=== PATIENT | male | born 1955 | race Caucasian/White ===

== ENCOUNTER 2023-04-09 03:13 | Inpatient (IN) | payer MEDICARE, OTHER, SELFPAY ==
[2023-04-08 22:14] VITALS: BMI 28.2
[2023-04-08 22:15] VITALS: BP 201/171
[2023-04-08 22:20] VITALS: BP 199/96
[2023-04-08 22:39] LABS: % Basophils 0.6 % (0-2); % Immature Granulocytes 0.4 % (0-0.5); % Lymphocytes 31.2 % (20.5-51.1); % Monocytes 10.1 % (1.7-9.3); % Neutrophils 49.7 % (42.2-75.2); Absolute Eosinophils 0.6 10^3/uL (0-0.7); Absolute Lymphocytes 2.2 10^3/uL (1.2-3.4); Absolute Monocytes 0.7 10^3/uL (0.1-0.6); Absolute Neutrophils 3.5 10^3/uL (1.4-6.5); Hematocrit 40.5 % (39.0-52.0); Hemoglobin 13.4 g/dL (13.0-18.0); Mean Corp Hgb Conc. 33.1 g/dL (33.0-37.0); Mean Corpuscular Hgb 29.3 pg (27.0-31.0); Mean Corpuscular Volume 88.4 fL (80.0-94.0); Mean Platelet Volume 9.2 fL (7.4-10.4); Nucleated Red Blood Cells % 0 % (-); Platelet Count 268 10^3/uL (130-400); Red Blood Cell Count 4.58 10^6/uL (4.70-6.10); Red Cell Dist. Width 12.9 % (11.5-14.5)
[2023-04-08 22:58] LABS: ALT (SGPT) 241 U/L (0-50); AST (SGOT) 41 U/L (17-59); Albumin 4.5 g/dl (3.5-5.0); Alkaline Phosphatase 140 U/L (38-126); Blood Urea Nitrogen 26 mg/dl (9-20); Calcium 9.2 mg/dl (8.4-10.2); Carbon Dioxide 30 mmol/L (22-30); Chloride 101 mmol/L (98-107); Estimated Creatinine Clearance 81 ml/min; Glucose 173 mg/dl (70-99); Lipase 98 U/L (23-300); Potassium 4.1 mmol/L (3.5-5.1); Sodium 138 mmol/L (135-145); Total Bilirubin 0.5 mg/dl (0.2-1.3); eGFR > 60.00
[2023-04-08 23:36] VITALS: BP 187/84
--- NOTE | 2023-04-08 23:46 | ED.GENMED ---
History of Present Illness
General
Chief Complaint: Abdominal Pain
Source: patient
Exam Limitations: none
Time Seen by Provider: 04/08/23 23:15
Travel History
Have you had any contact with someone who has COVID-19?: No
Do you have any symptoms of coronavirus? Fever > 100 degrees, chills, cough, shortness of breath, sore throat, loss of taste or smell, muscle aches, or headache?: No
History of Present Illness
History of Present Illness:
This is a 67 year old male that comes in with c/o right upper abd pain. Sates that this started about 8-9pm tonight. States that the pain wraps around to his back. States that he has been vomiting. States that he has pain in the abd with the
vomiting. Denies any fever, chils, chest pain, SOB, diarrhea, headache, dizziness, urinary burning.
Past History
Past History
ED Past Medical History: Hypercholesterolemia, NIDDM and Other (Back pain, Diverticulitis, Sleep apnea, Arthritis, Fx C3, )
ED Past Surgical History: Appendectomy, Bowel resection (Sigmoidectomy), Tonsilectomy, Urological (Vasectomy) and Other (Hernia repair, Bone graft, Uvulopalatopharyngoplasty)
Social History
Tobacco: Non-smoker
Alcohol: Occasional
Personal:
Living: with family
Phy Exam
General Physical Exam
General Presentation: mild distress
General age: appears stated age
General Skin: warm and dry
General Habitus: normal
General Mental: alert
General Hydration: dry mucous membranes
ENT Exam
ENT Exam: TM's normal, pharynx normal and neck supple
Eye Exam
Eye Exam: EOMI
Cardiovascular Exam
Cardiovascular Exam: regular rate/rhythm, no edema, no murmur and normal peripheral pulses
Pulmonary Exam
Pulmonary Exam: lungs clear, no respiratory distress, no rales, chest non tender, no crackles, no rhonchi, no wheezing and no cough
Gastrointestinal Exam
Gastrointestinal Exam: soft, no pulsatile mass, non distended, tender (Right upper abd tenderness with palpation. Hard palpable area) and other (Hypoactive bowel sounds)
Musculoskeletal Exam
Musculoskeletal Exam: full ROM and no edema
Skin Exam
Skin Exam: normal color, warm/dry, no rash and no petechia
Psychiatric Exam
Psychiatric Exam: normal mood/affect
Course
Orders/Labs/Results
Orders:
Orders
04/08/23 22:19
ECG [Electrocardiogram (*1)] Urgent
Reason for Study: Hypertension, Benign
IV Insert/Care/Rem.- Treatment PRN
04/08/23 22:20
EKG- Treatment ONCE
04/08/23 22:33
Complete Blood Count/With Diff Urgent
Comprehensive Metabolic Panel Urgent
Lipase Urgent
04/08/23 23:45
0.9% Sodium Chloride 1000 ml [Nss] 1,000 ml IV BOLUS
HYDROmorphone [Dilaudid] 1 mg IV NOW STA
Ondansetron Injectable [Zofran] 4 mg IV NOW STA
04/09/23 00:00
US Abdomen Complete/Upper Urgent
Reason For Exam: Right upper abd pain
Abnormal Lab Results
04/08/23
22:33
RBC 4.58 L 10^6/uL
(4.70-6.10)
Absolute Monos (auto) 0.7 H 10^3/uL
(0.1-0.6)
Monocytes % 10.1 H %
(1.7-9.3)
Eosinophils % 8.0 H %
(0-6)
BUN 26 H mg/dl
(9-20)
Glucose 173 H mg/dl
(70-99)
ALT 241 H U/L
(0-50)
Alkaline Phosphatase 140 H U/L
(38-126)
04/08/23 22:33
04/08/23 22:33
Dehydration. Glucose nonfasting. ALT Severely elevated. Alk phos mildly elevated. Lipase normal at 98
Vital Signs
Initial and Last Documented VS:
Initial Vital Signs
Temp Pulse Resp BP Pulse Ox
98.7 F 64 19 201/171 99
04/08/23 22:15 04/08/23 22:15 04/08/23 22:15 04/08/23 22:15 04/08/23 22:15
Last Documented Vital Signs
Temp Pulse Resp BP Pulse Ox
98.7 F 60 13 159/94 96
04/08/23 22:15 04/09/23 00:15 04/09/23 00:00 04/09/23 00:00 04/09/23 00:15
MDM/Problems Addressed
Differential Diagnosis Includes:
Gallbladder disease. Liver disease,
MDM/Problems Addressed:
This is a 67 year old male that comes in with c/o upper abd pain and vomiting that started tonight.
Will get labs, US and if nothing seen on US will get CT scan.
Back into see patient. Explained that he would be admitted. Explained that he has a stone stuck in the neck of the gallbladder with gallbladder distention.
Chronic conditions affecting care:
NA
Acute Exacerbation and/or Progression of Chronic Illness:
NA
*Radiology
Radiology exam reviewed: radiology read reviewed (US night hawk- 1.3cm gallstone and sludge lodged in the neck of markedly distended gallbladder, measuring over 12cm in length. Mild gallbladder wall thickenig of 4mm. Negative Ibrahim's sign although
patient did receive pain relieving medications. Extrahepatic biliary ductal dilation with common ) and other (US cont- common bile duct measuring 1.0cm. There is also mild main pancreatic ductal dilation of 4.5mm. No discreate ductal stone
identified although not excluded. Findings concerning for acute Cholecystitis and obstructive choledocholithiasis. Hyperechoic fatty liver. R kidney without hydronephros )
*Pulse Oximetry
Patient hypoxic: no
*EKG
Interpreted by ED Provider?: Yes
Heart Rate: 60
Rate: normal
Rhythm: sinus
[place]: left axis deviation
Interval: first degree heart block
QRS Pattern: normal QRS
Ischemia: no ischemia
*Critical Care Note
Total Time (30-74mins, 75-104mins- exclusive of procedures): Not Applicable
ED Attending Note
-
Portions of this chart may have been created with voice recognition software.� Occasional wrong word or��sound alike� substitutions may have occurred due to the inherent limitations of voice recognition software.
Discharge Plan
Departure
Patient Disposition: Admit
Date of Disposition: 04/09/23
Time of Disposition: 01:31
Admit to: Med/Surg
Presentation/result/management discussed w/ accepting MD/DO: Hospitalist
Patient with high blood pressure during this ER visit?: Yes
Condition: Good
Covid-19: Not Applicable
Discharge Problem:
Choledocholithiasis with acute cholecystitis with obstruction
Prescriptions:
No Action
cyclobenzaprine 10 MG tablet
10 mg PO PRN PRN (Reason: Back pain)
pravastatin 20 MG tablet
20 mg PO Daily
tizanidine 2 MG capsule
2 mg PO PRN PRN (Reason: back pain)
Referrals:
Kavitha Kathleen DO [Family Provider] -
Interventions
Interventions:
*Risk Screen - Suicide Last Done: 04/08/23 22:15
*General Assessment Last Done: 04/08/23 22:15
*Neglect/Abuse Screening Last Done: 04/08/23 22:15
ED- Fall Risk Assessment Last Done: 04/08/23 23:57
*ED COVID-19 Vaccine History Last Done: 04/08/23 22:15
CQ-Zhhpfn-Xnujggwlqs Assessment Last Done: 04/08/23 23:57
[2023-04-08] MEDS: ZOFRAN 4 MG IV (23:51)
[2023-04-08] MEDS: DILAUDID 1 MG IV (23:51)
[2023-04-08] MEDS: NSS 1000 IV (23:56)
[2023-04-09] VITALS (16 sets, daily range): BP systolic 120–185; BP diastolic 61–94; BMI 28.7
[2023-04-09] MEDS: ZOSYN 50 IV ×4 (01:32→20:38)
[2023-04-09] MEDS: DILAUDID 1 MG IV ×4 (01:32→21:59)
--- NOTE | 2023-04-09 01:56 | HPS.HSE ---
Family Physician
-
Family Physician: Kavitha Kathleen
Chief Complaint
-
abdominal pain
History of Present Illness
Mr. Elier De Leon is a 67 yo man with hx HLD, NIDDM presents to the ER with right upper abdominal pain that wraps around to his back.
Patient started around 8-9 PM. When asked if patient has had similar pain in past he states in retrospect he did but thought it was gastritis. + nausea/vomiting associated with pain. No fevers/chills. No chest pain or shortness of breath. No LE
swelling.
Received dilaudid in ER and pain significantly improved.
Medical History
Past Medical History
Past Medical History: Reports Hypercholesterolemia and NIDDM
Past Surgical History: Reports Other (Appendectomy, Bowel resection (Sigmoidectomy), Tonsilectomy, Urological (Vasectomy) and Other (Hernia repair, Bone graft, Uvulopalatopharyngoplasty))
Social History
Tobacco: Non-smoker
Alcohol: Occasional
Family History
Family History: Not pertinent
Allergies / Home Medications
Allergies reflects when Allergies were last updated in [facility].
Home Medications with original date entered in [facility]
Allergy/Medication List:
Allergies
Allergy/AdvReac Type Severity Reaction Status Date / Time
No Known Allergies Allergy Verified 04/08/23 22:15
Home Medications
tizanidine 2 mg capsule 2 mg PO PRN PRN back pain 03/12/18
Glucosamine Chondroitin 04/09/23
Probiotic 04/09/23
coenzyme Q10 100 mg capsule (Co Q-10) 100 mg PO DAILY 04/09/23
cyclobenzaprine 10 mg tablet 10 mg PO HS PRN severe backpain 04/09/23
metformin 500 mg tablet 500 mg PO BIDWMEAL 04/09/23
omeprazole 40 mg capsule,delayed release 40 mg PO BID 04/09/23
rosuvastatin 40 mg tablet 40 mg DAILY 04/09/23
turmeric 1,500 mg DAILY 04/09/23
Review of Systems
-
History Source: Patient
A 12 point ROS was completed and negative except as noted: Yes
Physical Exam
Vital Signs
Vital Signs
Temp Pulse Resp BP Pulse Ox
98.7 F 65 21 159/81 97
04/08/23 22:15 04/09/23 01:15 04/09/23 01:15 04/09/23 01:00 04/09/23 01:15
Physical Exam
General: No Apparent Distress
HEENT: PERRLA
Respiratory: Clear; No Wheezes
Cardiac: S1/S2 and Regular Rhythm
GI: Other (no significant tenderness post dilaudid )
Musculoskeletal: No Edema
Skin: Warm and Dry; No Rash
Neuro: AO x 3
Psych: Calm
Laboratory Results
-
04/08/23 22:33
04/08/23 22:33
Laboratory Results
Total Bilirubin 0.5 mg/dl (0.2-1.3) 04/08/23 22:33
AST 41 U/L (17-59) 04/08/23 22:33
ALT 241 U/L (0-50) H 04/08/23 22:33
Alkaline Phosphatase 140 U/L (38-126) H 04/08/23 22:33
Lipase 98 U/L (23-300) 04/08/23 22:33
Data Reviewed
-
Diagnostic Radiology: Report Reviewed by me
Lab Data: Labs Reviewed by me
Impression/Plan
-
Mr. Elier De Leon is a 67 yo man with hx HLD, NIDDM presents to the ER with right upper abdominal pain that wraps around to his back.
Triage VS: T 98.7, P 64, RR 19, BP 201/171 --> 159/94, SpO2 99%
LABS: WBC 7, Hg 13.4, PLT 268, Na 138, K+ 4.1, BUN 26, Cr 0.8, Glucose 173, T. Bili 0.5, AST 41, ALT 241, Alk Phos 140
RUQ US:
(US night hawk- 1.3cm gallstone and sludge lodged in the neck of markedly distended gallbladder, measuring over 12cm in length. Mild gallbladder wall thickenig of 4mm. Negative Ibrahim's sign although patient did receive pain relieving medications.
Extrahepatic biliary ductal dilation with common� ) and other (US cont- common bile duct measuring 1.0cm. There is also mild main pancreatic ductal dilation of 4.5mm. No discreate ductal stone identified although not excluded. Findings concerning
for acute Cholecystitis and obstructive choledocholithiasis. Hyperechoic fatty liver. R kidney without hydronephros )
MAR: IV dilaudid x 2, zosyn, IVF
Acute Cholecystitis
Obstructive Choledocholithiasis
-admit to tele
-IVF
-IV Zosyn
-NPO
-GI consult
-GS consult
-pain control
-anti-nausea med
GERD
-IV PPI
-hold INSOLE TAPER Tizanidine and Flexeril while getting dilaudid
NIDDM
-ISS low
DVT PPx SCD
FULL CODE
[2023-04-09] MEDS: LR 1000 IV ×2 (04:25→18:19)
[2023-04-09 06:17] LABS: Glucose - Point of Care 134 mg/dl (70-99)
[2023-04-09 06:22] LABS: % Basophils 0.3 % (0-2); % Eosinophils 1.5 % (0-6); % Immature Granulocytes 0.5 % (0-0.5); % Lymphocytes 10.3 % (20.5-51.1); % Monocytes 8.6 % (1.7-9.3); % Neutrophils 78.8 % (42.2-75.2); Absolute Eosinophils 0.2 10^3/uL (0-0.7); Absolute Immature Granulocytes 0.1 10^3/uL (0-0.05); Absolute Lymphocytes 1.3 10^3/uL (1.2-3.4); Absolute Monocytes 1.1 10^3/uL (0.1-0.6); Absolute Neutrophils 10.2 10^3/uL (1.4-6.5); Hematocrit 37.9 % (39.0-52.0); Hemoglobin 12.3 g/dL (13.0-18.0); Mean Corp Hgb Conc. 32.5 g/dL (33.0-37.0); Mean Corpuscular Hgb 28.9 pg (27.0-31.0); Mean Platelet Volume 9.7 fL (7.4-10.4); Nucleated Red Blood Cells % 0 % (-); Platelet Count 257 10^3/uL (130-400); Red Blood Cell Count 4.26 10^6/uL (4.70-6.10); White Blood Cell Count 12.9 10^3/uL (4.8-10.8)
--- NOTE | 2023-04-09 08:34 | CON.GI ---
Addendum entered and electronically signed by Zaki Judd MD 04/09/23 13:03:
I saw and examined the patient.
The PA's note was reviewed and I agree with the note.
Comment:
The patient is a 67 year old male with h/o DM and hyperlipidemia p/w RUQ abdo pain associated with nausea/vomiting. He has had intermittent episodes of similar pain for the past few years. Normal bili, alk phos 140. US showed 1.3 cm gallstone and
sludge in the neck of a markedly distended gallbladder, biliary dilation measuring 1.0 cm, pancreatic duct also dilated measuring up to 4.5mm.
Impression / Rec:
1. Biliary pain, cholecystitis, choledocholithiasis - MRCP done which showed small filling defect in the distal CBD measuring 3 mm. Non-obstructing choledocholithiasis. D/w surgery, ok with proceed with cholecystectomy, ERCP can be planned for
tomorrow for stone extraction. Will follow. Keep NPO from midnight for the procedure tomorrow.
Original Note:
Consultation
-
Date/Time Consultation Requested: 04/09/23315
Date/Time Consultation Performed: 04/09/23 0835
Requesting Provider: Dr. Sandie Sadler
Performing Provider: Dr. Judd / Christine Gutiérrez PA-C
Reason for Consultation: cholecystitis, suspected choledocholithiasis
Medical History
Chief Complaint / HPI
Chief Complaint: abdominal pain
History of Present Illness:
Elier is a 67 year old male with a past medical history of DM and hyperlipidemia who c/o right upper abdominal pain that began yesterday, with associated nausea, vomiting. No fever, chills, chest pain or shortness of breath. He states he has had
intermittent episodes of similar pain for the past few years but this seemed worse yesterday so he came to the hospital. Labs show stable hemoglobin and leukocytosis with a WBC count of 12.9, and LFTs ALT 213, AST 70, alk phos 140, bili 0.5. US
shows a 1.3cm gallstones and sludge lodged in the neck of a markedly distended gallbladder with gb wall thickening. There is also extrahepatic biliary ductal dilation with CBD measuring 1.0cm, concerning for acute cholecystitis and acute
choledocholithiasis. Pancreatic duct also noted to be dilated, measuring up to 4.5mm.
Past Medical History
Past Medical History: Hypercholesterolemia, NIDDM and Other (DM)
Past Surgical History: Appendectomy, Bowel Resection (sigmoidectomy), Tonsilectomy and Other (vasectomy, Hernia repair, Bone graft, Uvulopalatopharyngoplasty)
Social History
Tobacco: Non-Smoker
Alcohol: Occasional
Drug: None
Family History
Family History: Other (no family history of GI malignancies)
Allergies / Home Medications
Allergy/AdvReac Type Severity Reaction Status Date / Time
No Known Allergies Allergy Verified 04/08/23 22:15
Medication Instructions Recorded
tizanidine 2 mg capsule 2 mg PO PRN PRN back pain 03/12/18
Glucosamine Chondroitin 04/09/23
Probiotic 04/09/23
coenzyme Q10 100 mg capsule (Co 100 mg PO DAILY 04/09/23
Q-10)
cyclobenzaprine 10 mg tablet 10 mg PO HS PRN severe backpain 04/09/23
metformin 500 mg tablet 500 mg PO BIDWMEAL 04/09/23
omeprazole 40 mg capsule,delayed 40 mg PO BID 04/09/23
release
rosuvastatin 40 mg tablet 40 mg DAILY 04/09/23
turmeric 1,500 mg DAILY 04/09/23
Review of Systems
-
History Source: Patient
All other systems: A 12 pt ROS was Negative except as stated above in HPI
Vital Signs
Temp Pulse Resp BP Pulse Ox
98.1 F 64 16 152/77 98
04/09/23 08:15 04/09/23 08:15 04/09/23 08:15 04/09/23 08:15 04/09/23 08:15
Physical Exam
Exam
General: Well Developed, Well Nourished and No Apparent Distress
Respiratory: Clear
Cardiac: Regular Rhythm
GI: Soft, Non Distended, Normal Bowel Sounds and Tender (+RUQ tenderness)
Musculoskeletal: No Edema
Skin: Warm and Dry
Neuro: AO x 3
Psych: Calm
Results
WBC 12.9 10^3/uL (4.8-10.8) H 04/09/23 05:14
Hgb 12.3 g/dL (13.0-18.0) L 04/09/23 05:14
Hct 37.9 % (39.0-52.0) L 04/09/23 05:14
MCV 89.0 fL (80.0-94.0) 04/09/23 05:14
Plt Count 257 10^3/uL (130-400) 04/09/23 05:14
Absolute Neuts (auto) 10.2 10^3/uL (1.4-6.5) H 04/09/23 05:14
Sodium 138 mmol/L (135-145) 04/08/23 22:33
Potassium 4.1 mmol/L (3.5-5.1) 04/08/23 22:33
Chloride 101 mmol/L (98-107) 04/08/23 22:33
Carbon Dioxide 30 mmol/L (22-30) 04/08/23 22:33
BUN 26 mg/dl (9-20) H 04/08/23 22:33
Creatinine 0.8 mg/dL (0.7-1.3) 04/08/23 22:33
Calcium 9.2 mg/dl (8.4-10.2) 04/08/23 22:33
Total Bilirubin 0.5 mg/dl (0.2-1.3) 04/08/23 22:33
AST 41 U/L (17-59) 04/08/23 22:33
ALT 241 U/L (0-50) H 04/08/23 22:33
Alkaline Phosphatase 140 U/L (38-126) H 04/08/23 22:33
Lipase 98 U/L (23-300) 04/08/23 22:33
Diagnostic Image Results:
US 04/09/23:
-Shadowing gallstone is present within the neck of the gallbladder. There is also adjacent sludge. Subtle rim of decreased echogenicity along the periphery of the gallbladder wall, suggesting a small amount of pericholecystic edema. Negative
sonographic Ibrahim's sign.
-Dilation of the common bile duct, measuring up to 9.8 mm.
-Liver length is in the upper range of normal. Diffuse fatty infiltration of the liver.
-Dilation of the pancreatic duct, measuring up to 4.5 mm.
MRI/MRCP ordered and pending
Prior GI Procedures:
EGD: November 2022 at [facility], normal per patient
Colonoscopy: 3-[address] Juarez, normal per patient. He reports a history of colon polyps.
Assessment / Plan
-
67 year old male with DM and hyperlipidemia c/o right upper abdominal pain that began yesterday, with nausea, vomiting. No fever, chills, chest pain or shortness of breath. He has had intermittent episodes of similar pain for the past few years.
Labs show stable hemoglobin and leukocytosis with a WBC count of 12.9, and LFTs ALT 213, AST 70, alk phos 140, bili 0.5. US shows a 1.3cm gallstone and sludge lodged in the neck of a markedly distended gallbladder with gb wall thickening. There is
also extrahepatic biliary ductal dilation with CBD measuring 1.0cm, concerning for acute cholecystitis and acute choledocholithiasis. Pancreatic duct also noted to be dilated, measuring up to 4.5mm.
IMPRESSION / PLAN:
Abdominal Pain, secondary to acute cholecystitis and suspected choledocholithiasis
-MRI/MRCP ordered to confirm CBD stone, and further evaluate the dilated CBD and PD seen on US
-plan for EUS/ERCP with Dr. Judd, pending MRI results
-General Surgery has been consulted
-trend LFTs
-antiemetics and pain control per hospitalist
We will follow.
-
-
Thank you for consultation and allowing me to participate in the patient's care. Please call the palaeontologist GI physician during the after hours with any questions or concerns.
[2023-04-09 08:49] LABS: ALT (SGPT) 213 U/L (0-50); AST (SGOT) 70 U/L (17-59); Albumin 3.9 g/dl (3.5-5.0); Alkaline Phosphatase 140 U/L (38-126); Blood Urea Nitrogen 21 mg/dl (9-20); Calcium 8.4 mg/dl (8.4-10.2); Carbon Dioxide 28 mmol/L (22-30); Chloride 102 mmol/L (98-107); Estimated Creatinine Clearance 93 ml/min; Glucose 140 mg/dl (70-99); Magnesium 1.9 mg/dl (1.6-2.3); Sodium 135 mmol/L (135-145); Total Bilirubin 0.5 mg/dl (0.2-1.3); Total Protein 6.1 g/dl (6.3-8.2); eGFR > 60.00
[2023-04-09 09:11] LABS: Glycohemoglobin (HgbA1c) 6.3 % (4.0-5.6)
[2023-04-09] MEDS: PROTONIX IV 40 MG IV ×2 (09:23→20:38)
[2023-04-09] MEDS: NSS (PRESERVATIVE FREE) 10 ML IV ×2 (09:23→20:38)
--- NOTE | 2023-04-09 10:10 | CON.GS ---
Consultation
-
Requesting Provider: Hospitalist
Performing Provider: Jeffy
Reason for Consultation: RUQ pain, gallstones
Medical History
-
Chief Complaint: RUQ pain
History of Present Illness:
67 y/o male with acute onset epigastric and RUQ abdominal pain/pressure. multiple similar episodes in the past 6+ months. episode on thursday lasted overnight then resolved. last night after mac and cheese pain returned with nausea/vomiting. worse
than any prior episodes and persisted prompting ER evaluation.
last BM yesterday AM - normal
no yellowing skin/eyes, no dark tea colored urine
no f/c/s
Past Medical History
Past Medical History: Hypercholesterolemia and NIDDM
Past Surgical History: Appendectomy, Bowel Resection (sigmoidectomy) and Hernia Repair
Social History
Tobacco: Non-Smoker
Alcohol: Occasional
Family History
Family History: Reviewed & Noncontributory
Allergies / Home Medications
Allergy/AdvReac Type Severity Reaction Status Date / Time
No Known Allergies Allergy Verified 04/08/23 22:15
Medication Instructions Recorded Confirmed Type
tizanidine 2 mg capsule 2 mg PO PRN PRN back pain 03/12/18 04/09/23 History
Glucosamine Chondroitin 04/09/23 History
Probiotic 04/09/23 History
coenzyme Q10 100 mg capsule (Co 100 mg PO DAILY 04/09/23 04/09/23 History
Q-10)
cyclobenzaprine 10 mg tablet 10 mg PO HS PRN severe backpain 04/09/23 04/09/23 History
metformin 500 mg tablet 500 mg PO BIDWMEAL 04/09/23 04/09/23 History
omeprazole 40 mg capsule,delayed 40 mg PO BID 04/09/23 04/09/23 History
release
rosuvastatin 40 mg tablet 40 mg DAILY 04/09/23 04/09/23 History
turmeric 1,500 mg DAILY 04/09/23 04/09/23 History
Review of Systems
-
History Source: Patient
All other systems: Negative unless noted
A 10 point review of systems was completed, and was negative except as per HPI.
Physical Exam
Vital Signs
Temp Pulse Resp BP Pulse Ox
98.1 F 64 16 152/77 98
04/09/23 08:15 04/09/23 08:15 04/09/23 08:15 04/09/23 08:15 04/09/23 08:15
04/08/23 04/09/23 04/10/23
06:59 06:59 06:59
Actual Weight 82.917 kg
Body Mass Index (BMI) 28.7
Lab Results
04/09/23 05:14
04/09/23 05:14
WBC 12.9 10^3/uL (4.8-10.8) H 04/09/23 05:14
Hgb 12.3 g/dL (13.0-18.0) L 04/09/23 05:14
Hct 37.9 % (39.0-52.0) L 04/09/23 05:14
Plt Count 257 10^3/uL (130-400) 04/09/23 05:14
Abs Immat Gran (auto) 0.1 10^3/uL (0-0.05) H 04/09/23 05:14
Neutrophils % 78.8 % (42.2-75.2) H 04/09/23 05:14
Physical Exam
General: Well Developed, Well Nourished, No Apparent Distress and Comfortable
HEENT: Normocephalic and Anicteric
Respiratory: Non Labored Respirations
Cardiac: Regular Rhythm
GI: Soft
Skin: Warm
Neuro: AO x 3
Psych: Calm
Data Reviewed
-
Ultrasound: Image Personally Visualized and interpreted (large GS in neck of GB. edema, mild wall thickening, biliary and pancreatic ductal dilation), Report Reviewed by me and Discussed with Physician
MRI: Image Personally Visualized and interpreted (large gallstone in neck of GB with pericholecystic edema. biliary ductal dilation, possible small distal stone vs sludge) and Discussed with Physician
Labs: Labs Reviewed by me
Assessment / Plan
-
Assessment: 67 y/o male with probable acute calulous cholecystitis and nonobstructive choledocholithiasis/sludge without cholangitis nor jaundice.
discussed with patient hx and results of work up. reviewed with GINNA Quinonez.
presentation and imaging are more suggestive of acute calculous cholecystitis as primary presenting problem then choledocholithiasis given normal bilirubin - non obstructive.
therefore discussed with patient indications for cholecystectomy for management of ACC with intraoperative cholangiogram to assess biliary tree further for choledocholithiasis. if IOC + then would proceed with ERCP. lap myke with IOC was reviewed
in detail including operative technique, alternative tx options, beneftis and potential risks such as but not limited to bleeding, infectious or wound related complications, conversion to open, iatrogenic injury to surrounding viscera such as bile
duct injury, post op bile leak. discussed typical post operative recovery pending operative findings and subsequent follow up and recommended activity restrictions. any of the patients concerns or questions were fully addressed and informed
consent was obtained.
Plan: pt added onto OR schedule today for lap myke with IOC
NPO
IVF
Zosyn
--- NOTE | 2023-04-09 11:00 | CM ---
Reviewed the chart notes and spoke with the patient at the bedside. The patient is going to the OR today for a cholecystectomy. The patient resides with his spouse in a three story split level home with one step to enter. The patient reports no
DME/VN/SNF in the past. The patient uses a retainer of some sort for sleep apnea. The patient confirmed his pharmacy of choice is the [address] [place] [address] [facility]. The patient anticipates being discharged to home with no additional needs being
identified at this time. CM continues to be available to patient/family and is monitoring medical plan for needs at discharge.
Plan: Discharge to home when medically stable.
[2023-04-09 11:52] LABS: Glucose - Point of Care 100 mg/dl (70-99)
--- NOTE | 2023-04-09 13:30 | PTCARENOTE ---
Pt transported to the Pre op area via bed. Pt and Pt's instructed on what to expect pre and post operatively. Both Pt and verbalized understanding of instructions. Erika tubed to the OR suit. Verbal report given to 'Malissa' RN OR nurse.
--- NOTE | 2023-04-09 13:42 | W.PN.HOSP.TC ---
Today's Communication/Plan
-
lap choley
ercp tomorrow
abx, fluids
pain control
Assessment / Plan
Assessment / Plan
Physical Exam
General: No Apparent Distress
HEENT: PERRLA
Respiratory: Clear; No Wheezes
Cardiac: S1/S2 and Regular Rhythm
GI: Other (no significant tenderness post dilaudid )
Musculoskeletal: No Edema
Skin: Warm and Dry; No Rash
Neuro: AO x 3
Psych: Calm
Acute Cholecystitis
Non Obstructive Choledocholithiasis
Transaminitis
-MRI performed
-lap Ashley today
-ERCP tentatively tomorrow for stone extraction
-GI consult
-GS consult
-pain control
-anti-nausea med
-zosyn
GERD
-IV PPI
-hold CONSUMER INSIGHTS SPECIALIST Tizanidine and Flexeril while getting dilaudid
NIDDM
-ISS low
DVT PPx SCD; start hsq tomorrow after procedure
FULL CODE
Total time spent on today's encounter was 51 minutes which included time spent in counseling the patient/family regarding diagnosis and treatment plan as listed above, goals of care, and symptom management. Case was discussed with nursing staff,
specialists, and care coordinators/case management. All labs and imaging personally reviewed by me. Remainder the time spent in detailed review of previous records, lab data, imaging, and other medical provider documentation.
Anticipated Discharge: > 48 hours
Subjective/Interval History
-
Date of Service: April 09, 2023
pain controlled with regimen
Objective Data
-
Labs:
Laboratory Results
04/09/23
05:14
WBC 12.9 H
Hgb 12.3 L
Hct 37.9 L
Plt Count 257
Sodium 135
Potassium 4.0
Chloride 102
Carbon Dioxide 28
BUN 21 H
Creatinine 0.7
Glucose 140 H
Calcium 8.4
Total Bilirubin 0.5
AST 70 H
ALT 213 H
Alkaline Phosphatase 140 H
Vital Signs:
Vital Signs
Temp Pulse Resp BP Pulse Ox
98.3 F 61 16 140/70 96
04/09/23 11:36 04/09/23 11:36 04/09/23 11:36 04/09/23 11:36 04/09/23 11:36
Review of Systems
-
History Source: Patient
All other systems: Not reviewed unless documented
Data Reviewed
-
CT Scan: Image personally visualized and interpreted and Report Reviewed by me
Ultrasound: Image personally visualized and interpreted and Report Reviewed by me
MRI: Image personally visualized and interpreted and Report Reviewed by me
Medical Tests (Nuc Med, Echo etc): Image personally visualized and interpreted and Report Reviewed by me
Labs: Labs Reviewed by me
--- NOTE | 2023-04-09 13:50 | W.SUR.PREOP ---
Pre-Operative Surgical Note
-
I have examined this patient prior to the performance of the scheduled procedure.
The patient's condition is unchanged from the time of the current History and
Physical and the patient is able to undergo the scheduled procedure.
--- NOTE | 2023-04-09 15:54 | W.IMMPOSTOP ---
Addendum entered and electronically signed by Tyrell Bardales MD 04/10/23 10:12:
#[id number]
Original Note:
Surgical Immed Post Op Note
-
Primary Surgeon: Jeffy
Assisting Surgeon: Jorge/Estefanía VIEIRA
Pre-op Diagnosis: Acute calculus cholecystitis
Post-op Diagnosis: Acute calculus cholecystitis
Procedure Performed: Laparoscopic cholecystectomy
Anesthesia Type: GETA + 0.25% Marcaine
Specimen / Cultures: GB
Estimated Blood Loss: 20mL
Complications: none immediate
Operative Findings: Tensely distended and enlarged gallbladder with large stone impacted in neck of gallbladder. Cyst needle decompression revealing hydropic/purulent bile consistent with cystic duct obstruction. Omental adhesions acute and
chronic. Significant pericholecystic edema throughout the tissues. Cholecystectomy completed. Short inflamed cystic duct, unable to complete cholangiogram. Cystic duct divided utilizing Endo WAYNE mills 30 mm articulating stapler. Cystic duct
identified and controlled with hemoclips. Gallbladder extracted at the epigastric port site.
Plan: Clear liquids then n.p.o. after midnight. Discussed with Dr. Judd, he will be added on for ERCP tomorrow with GI. Operative findings strongly suggestive of acute calculus cholecystitis as presenting symptoms however given MR results agree
with proceeding with ERCP to clear common bile duct as well. Continue antibiotics while in hospital.
[2023-04-09 16:16] LABS: Glucose - Point of Care 156 mg/dl (70-99)
--- NOTE | 2023-04-09 17:10 | PTCARENOTE ---
Pt received from the PACU via bed. Transport was w/o incident. Pt is drowsy and easily arousable. Pt denies nausea and admits to mild to moderate abd pain. Will medicate for pain as ordered. Pt with 4 Lap sites and one puncture site, well
approximated w/ surgi glue. No drainage noted. VSS, pt is afebrile. Pt instructed on plan of care. Pt verbalized understanding of instructions. Call calloway is within reach.
[2023-04-09 17:57] LABS: Glucose - Point of Care 151 mg/dl (70-99)
[2023-04-09] MEDS: FLUSH (NSS) 3 FLUSH IV (20:39)
[2023-04-09] MEDS: FLUSH (NSS) 2 FLUSH IV (21:59)
[2023-04-09 23:12] LABS: Glucose - Point of Care 157 mg/dl (70-99)
[2023-04-10] VITALS (9 sets, daily range): BP systolic 18–161; BP diastolic 61–76
[2023-04-10] MEDS: FLUSH (NSS) 2 FLUSH IV (02:55)
[2023-04-10] MEDS: ZOSYN 50 IV ×4 (02:55→20:29)
[2023-04-10] MEDS: LR 1000 IV ×2 (04:42→19:13)
[2023-04-10 06:03] LABS: Glucose - Point of Care 119 mg/dl (70-99)
[2023-04-10 06:29] LABS: Hematocrit 36.6 % (39.0-52.0); Hemoglobin 12.1 g/dL (13.0-18.0); Mean Corp Hgb Conc. 33.1 g/dL (33.0-37.0); Mean Corpuscular Hgb 29.3 pg (27.0-31.0); Mean Corpuscular Volume 88.6 fL (80.0-94.0); Mean Platelet Volume 9.8 fL (7.4-10.4); Platelet Count 234 10^3/uL (130-400); Red Blood Cell Count 4.13 10^6/uL (4.70-6.10); Red Cell Dist. Width 13.1 % (11.5-14.5); White Blood Cell Count 13.4 10^3/uL (4.8-10.8)
[2023-04-10] MEDS: ZOFRAN 4 MG IV (06:37)
[2023-04-10] MEDS: DILAUDID 1 MG IV (06:39)
[2023-04-10] MEDS: FLUSH (NSS) 3 FLUSH IV (06:40)
[2023-04-10 07:02] LABS: ALT (SGPT) 156 U/L (0-50); AST (SGOT) 60 U/L (17-59); Albumin 3.4 g/dl (3.5-5.0); Alkaline Phosphatase 110 U/L (38-126); Blood Urea Nitrogen 13 mg/dl (9-20); Calcium 8.3 mg/dl (8.4-10.2); Carbon Dioxide 26 mmol/L (22-30); Chloride 95 mmol/L (98-107); Estimated Creatinine Clearance 93 ml/min; Glucose 129 mg/dl (70-99); Potassium 3.9 mmol/L (3.5-5.1); Sodium 133 mmol/L (135-145); Total Bilirubin 0.9 mg/dl (0.2-1.3); Total Protein 5.6 g/dl (6.3-8.2); eGFR > 60.00
[2023-04-10] MEDS: PROTONIX IV 40 MG IV ×2 (08:37→20:28)
[2023-04-10] MEDS: NSS (PRESERVATIVE FREE) 10 ML IV ×2 (08:37→20:29)
--- NOTE | 2023-04-10 10:15 | W.PN.GI.CBS2 ---
Today's Communication / Plan
-
s/p lap myke yesterday, plan for ERCP today
Assessment / Plan
-
67 year old male with DM and hyperlipidemia c/o right upper abdominal pain that began yesterday, with nausea, vomiting. No fever, chills, chest pain or shortness of breath. He has had intermittent episodes of similar pain for the past few years.
Labs show stable hemoglobin and leukocytosis with a WBC count of 12.9, and LFTs ALT 213, AST 70, alk phos 140, bili 0.5. US shows a 1.3cm gallstone and sludge lodged in the neck of a markedly distended gallbladder with gb wall thickening. There is
also extrahepatic biliary ductal dilation with CBD measuring 1.0cm, concerning for acute cholecystitis and acute choledocholithiasis. Pancreatic duct also noted to be dilated, measuring up to 4.5mm.
IMPRESSION / PLAN:
Abdominal Pain, secondary to acute cholecystitis and choledocholithiasis
-MRI/MRCP confirmed choledocholithiasis (non-obstructing) and acute cholecystitis
-pt underwent laparascopic cholecystectomy yesterday (this is Post-Op Day 1); plan for ERCP today
-on IV antibiotics
-continue antiemetics and pain control per hospitalist
We will continue to follow.
Subjective
Subjective
Date of Service: April 10, 2023
Feels OK post-op. Had lap myke yesterday. No fever, chills, nausea, vomiting.
Objective
Data Reviewed
Laboratory Data:
Laboratory Results
04/10/23 04:33
04/10/23 04:33
Laboratory Results
Magnesium 2.0 mg/dl (1.6-2.3) 04/10/23 04:33
Total Bilirubin 0.9 mg/dl (0.2-1.3) 04/10/23 04:33
AST 60 U/L (17-59) H 04/10/23 04:33
ALT 156 U/L (0-50) H 04/10/23 04:33
Alkaline Phosphatase 110 U/L (38-126) 04/10/23 04:33
Lipase 98 U/L (23-300) 04/08/23 22:33
Vital Signs and I&O:
Vital Signs
Temp Pulse Resp BP Pulse Ox
98.7 F 67 19 141/74 97
04/10/23 07:13 04/10/23 07:13 04/10/23 07:13 04/10/23 07:13 04/10/23 07:13
I&O
04/09/23 04/10/23 04/11/23
06:59 06:59 06:59
Intake Total 1789
Balance 1789
Physical Exam
Physical Exam
GI: Soft, Non Distended, Non Tender and Normal Bowel Sounds
[2023-04-10 10:33] LABS: Glucose - Point of Care 125 mg/dl (70-99)
--- NOTE | 2023-04-10 11:03 | W.PN.GS2 ---
Addendum entered and electronically signed by Gene Hargrove MD 04/10/23 15:57:
I saw and examined the patient.
The Field Hauler's note was reviewed and I agree with the note.
Comment: Seen post-ERCP. No complaints. Ambulating. Nav CLD. Pain controlled. Exam approp, incisions cdi. Adv diet per GI. OK for DC from surgical standpoint.
Original Note:
Today's Communication / Plan
-
ERCP
Assessment / Plan
-
67 yo male presenting with ACC now POD #1 lap myke
ERCP planned today given CBD findings on MR
Mild leukocytosis
AFVSS
Plan:
Diet advancement as per GI
Analgesics prn
OOB/Ambulate
Final dispo as per primary team, clear from surgical standpoint after ERCP
Subjective Data
-
Date of Service: April 10, 2023
Patient seen and examined at bedside. Notes some bloating with belching. Passing minimal flatus. Denies nausea or vomiting. Incisional discomfort with movement.
Objective Data
-
Intake and Output
04/09/23 04/10/23 04/11/23
06:59 06:59 06:59
Intake Total 1790 / 1790
Balance 1790 / 1790
Intake:
Oral fluids 240 / 240
IV fluids (Total) 1450 / 1450
Normosol 50 / 50
IV piggybacks 100 / 100
Other:
Number of approximated SMALL 1
amounts of urine
Number of approximated MODERATE 2
amounts of urine
Vital Signs
Temp Pulse Resp BP Pulse Ox
98.7 F 67 19 141/74 97
04/10/23 07:13 04/10/23 07:13 04/10/23 07:13 04/10/23 07:13 04/10/23 07:13
Lab Results
04/10/23 04:33
04/10/23 04:33
Calcium 8.3 mg/dl (8.4-10.2) L 04/10/23 04:33
Magnesium 2.0 mg/dl (1.6-2.3) 04/10/23 04:33
Total Bilirubin 0.9 mg/dl (0.2-1.3) 04/10/23 04:33
AST 60 U/L (17-59) H 04/10/23 04:33
ALT 156 U/L (0-50) H 04/10/23 04:33
Alkaline Phosphatase 110 U/L (38-126) 04/10/23 04:33
Total Protein 5.6 g/dl (6.3-8.2) L 04/10/23 04:33
Albumin 3.4 g/dl (3.5-5.0) L 04/10/23 04:33
Physical Exam
-
NAD
ABD softly distended, NT, FLIGHT CONTROL TOWER OPERATOR
Lap incisions well approximated with intact glue
[2023-04-10 12:20] LABS: Glucose - Point of Care 130 mg/dl (70-99)
--- NOTE | 2023-04-10 12:35 | W.PN.HOSP.TC ---
Addendum entered and electronically signed by Tawanda Mooney MD 04/10/23 12:45:
#Hyponatremia
-ctm, mild
Original Note:
Today's Communication/Plan
-
CLD today
Assessment / Plan
Assessment / Plan
Physical Exam
General: No Apparent Distress
HEENT: PERRLA
Respiratory: Clear; No Wheezes
Cardiac: S1/S2 and Regular Rhythm
GI: Other (no significant tenderness post dilaudid )
Musculoskeletal: No Edema
Skin: Warm and Dry; No Rash
Neuro: AO x 3
Psych: Calm
Acute Cholecystitis
Non Obstructive Choledocholithiasis
Transaminitis
-POD #1 lap myke
-ERCP today: �Choledocholithiasis was found. Complete removal was accomplished by biliary sphincterotomy and balloon extraction. -A biliary sphincterotomy was performed. The biliary tree was swept.
-Indomethacin rectally today
-CLD today
-GI consult
-GS consult
-pain control
-anti-nausea med
-zosyn
GERD
-IV PPI
-hold PATTERN FINISHER Tizanidine and Flexeril while getting dilaudid
NIDDM
-ISS low
DVT PPx SCD; start hsq
FULL CODE
Total time spent on today's encounter was 55 minutes which included time spent in counseling the patient/family regarding diagnosis and treatment plan as listed above, goals of care, and symptom management. Case was discussed with nursing staff,
specialists, and care coordinators/case management. All labs and imaging personally reviewed by me. Remainder the time spent in detailed review of previous records, lab data, imaging, and other medical provider documentation.
Anticipated Discharge: Within 24 hours
Subjective/Interval History
-
Date of Service: April 10, 2023
ERCP today
Objective Data
-
Labs:
Laboratory Results
04/10/23
04:33
WBC 13.4 H
Hgb 12.1 L
Hct 36.6 L
Plt Count 234
Sodium 133 L
Potassium 3.9
Chloride 95 L
Carbon Dioxide 26
BUN 13
Creatinine 0.7
Glucose 129 H
Calcium 8.3 L
Total Bilirubin 0.9
AST 60 H
ALT 156 H
Alkaline Phosphatase 110
Vital Signs:
Vital Signs
Temp Pulse Resp BP Pulse Ox
99.9 F 69 22 158/74 95
04/10/23 12:09 04/10/23 12:31 04/10/23 12:31 04/10/23 12:31 04/10/23 12:31
I&O
04/09/23 04/10/23 04/11/23
06:59 06:59 06:59
Intake Total 1790 / 1790
Balance 1790 / 1790
Review of Systems
-
History Source: Patient
All other systems: Not reviewed unless documented
Data Reviewed
-
CT Scan: Image personally visualized and interpreted and Report Reviewed by me
Ultrasound: Image personally visualized and interpreted and Report Reviewed by me
MRI: Image personally visualized and interpreted and Report Reviewed by me
Medical Tests (Nuc Med, Echo etc): Image personally visualized and interpreted and Report Reviewed by me
Labs: Labs Reviewed by me
--- NOTE | 2023-04-10 12:52 | PTCARENOTE ---
Pt received back from ERCP via stretcher. Pt is AAOx3, HRR, Lungs are clear and resp. easy. VSS Pt is afebrile. VSS, Pt is afebrile. Pt instructed on plan of care. Pt verbalized understanding of instructions. Call calloway is within reach.
--- NOTE | 2023-04-10 16:53 | CM ---
Discharge Plan of Care: Home with no needs. Will follow in the event needs change.
[2023-04-10 16:56] LABS: Glucose - Point of Care 148 mg/dl (70-99)
[2023-04-10 21:35] LABS: Glucose - Point of Care 111 mg/dl (70-99)
--- NOTE | 2023-04-11 00:36 | PTCARENOTE ---
HP notified of pt's new AFIB on tele with HRs at rest 110-130s. Pt at denies any pain, SOB, or fast heart rate reporting increase urine output. HP d/c fluids at this time. Pt has labs for morning. Pt educated to notify staff if he feels any symptoms
educated on.
[2023-04-11 00:55] VITALS: BP 117/70
[2023-04-11] MEDS: ZOSYN 50 IV ×3 (02:10→15:15)
[2023-04-11 03:30] VITALS: BP 106/70
--- NOTE | 2023-04-11 06:21 | PTCARENOTE ---
Pt HR 100s-120s after fluids d/c. Pt cont to deny any pain or SOB, asymptomatic.
[2023-04-11] MEDS: LR IV (07:12)
[2023-04-11 07:15] LABS: Hematocrit 35.8 % (39.0-52.0); Hemoglobin 11.7 g/dL (13.0-18.0); Mean Corp Hgb Conc. 32.7 g/dL (33.0-37.0); Mean Corpuscular Hgb 28.7 pg (27.0-31.0); Mean Platelet Volume 9.6 fL (7.4-10.4); Platelet Count 229 10^3/uL (130-400); Red Blood Cell Count 4.07 10^6/uL (4.70-6.10); Red Cell Dist. Width 12.8 % (11.5-14.5); White Blood Cell Count 9.7 10^3/uL (4.8-10.8)
[2023-04-11 07:19] LABS: ALT (SGPT) 122 U/L (0-50); AST (SGOT) 38 U/L (17-59); Albumin 3.1 g/dl (3.5-5.0); Alkaline Phosphatase 108 U/L (38-126); Blood Urea Nitrogen 13 mg/dl (9-20); Calcium 8.1 mg/dl (8.4-10.2); Carbon Dioxide 26 mmol/L (22-30); Chloride 103 mmol/L (98-107); Estimated Creatinine Clearance 81 ml/min; Glucose 123 mg/dl (70-99); Magnesium 2.3 mg/dl (1.6-2.3); Potassium 3.6 mmol/L (3.5-5.1); Sodium 136 mmol/L (135-145); Total Bilirubin 0.8 mg/dl (0.2-1.3); Total Protein 5.2 g/dl (6.3-8.2); eGFR > 60.00
[2023-04-11 07:27] LABS: Glucose - Point of Care 108 mg/dl (70-99)
[2023-04-11 08:00] VITALS: BP 114/75
[2023-04-11] MEDS: PROTONIX IV 40 MG IV (09:35)
[2023-04-11] MEDS: NSS (PRESERVATIVE FREE) 10 ML IV (09:36)
--- NOTE | 2023-04-11 10:46 | W.PN.GS2 ---
Today's Communication / Plan
-
`
Assessment / Plan
-
67 yo male presenting with ACC now POD #2 lap myke; PPD #1 status post ERCP stone extraction
AFVSS
Doing well postop and post ERCP
Plan: Low-fat diet
Stable for discharge from postoperative surgical standpoint.
No further antibiotics required on discharge from a surgical standpoint.
Outpatient follow-up with myself in approximately 2 weeks for postop check.
Narcotic prescription e-prescribed
Subjective Data
-
Date of Service: April 11, 2023
Patient seen and examined.
Feeling better today. Much less incisional pain. No abdominal pain no abdominal bloating or distention.
Tolerating clear liquids and requesting food.
Objective Data
-
Intake and Output
04/10/23 04/11/23 04/12/23
06:59 06:59 06:59
Intake Total 1790 / 1790 1810 / 1810
Balance 1790 / 1790 1810 / 1810
Intake:
Oral fluids 240 / 240 1260 / 1260
IV fluids (Total) 1450 / 1450 500 / 500
Normosol 50 / 50
IV piggybacks 100 / 100 50 / 50
Other:
Number of approximated SMALL 1
amounts of urine
Number of approximated MODERATE 2 5
amounts of urine
Number of approximated LARGE 3
amounts of urine
Vital Signs
Temp Pulse Resp BP Pulse Ox
97.7 F 75 14 114/75 97
04/11/23 08:00 04/11/23 08:00 04/11/23 08:00 04/11/23 08:00 04/11/23 08:00
Lab Results
04/11/23 06:26
04/11/23 06:26
Calcium 8.1 mg/dl (8.4-10.2) L 04/11/23 06:26
Magnesium 2.3 mg/dl (1.6-2.3) 04/11/23 06:
Total Bilirubin 0.8 mg/dl (0.2-1.3) 04/11/23 06:
AST 38 U/L (17-59) 04/11/23 06:
ALT 122 U/L (0-50) H 04/11/23:26
Alkaline Phosphatase 108 U/L (38-126) 04/11/23 06:
Total Protein 5.2 g/dl (6.3-8.2) L 04/11/23 06:26
Albumin 3.1 g/dl (3.5-5.0) L 04/11/23 06:26
Physical Exam
-
NAD AAOx3
ABD: Soft, nondistended, minimal tenderness at incision sites. Surgical sites with glue dressing. No erythema, no drainage.
[2023-04-11 11:40] VITALS: BP 107/55
[2023-04-11 12:02] LABS: Glucose - Point of Care 149 mg/dl (70-99)
--- NOTE | 2023-04-11 13:19 | CON.CAR ---
Addendum entered and electronically signed by Raven Dickens MD 04/11/23 14:22:
Note signed prematurely.
In addition to that HPI> He had no symptoms of AF. He was in it from ~9:30 pm to 7am. He has no cp. He has no issue of GI Bleeding, takes no NSAIDs, he doesn't drink daily, but does socially.
ROS: negative except where noted
Physical exam:
aaox3 in nad
No JVP
RRR, no m/r/g
lungs cta no w/r/r
Abd soft nt nd
Ext wwp no c/c/e
PAF: new onset, asx, back in NSR.
-agree with bb ordered
-C2V score is 2. Discussed the risks vs benefit of OAT. He is agreeable. Eliquis and Xarelto cost prohibitive. WIll recommend Dabigatraban which will be 68 dollars if he uses [facility].
-D/w Dr Bardales ok to start 72 hours post op--->Thursday morning
-will arrange outpatient follow up and echo
-counseled to abstain from ETOH.
ACC s/p Lap myke:
-doing well post op
-timing of DOAC as above
HLD
-continue rosuvastatin
Original Note:
Consultation
Consultation Request
Date/Time Consultation Requested: 04/11/23
Date/Time Consultation Performed: 04/11/23
Requesting Provider: Dr Mooney
Performing Provider: Dr Dickens (Dr Douglas primary general manager farm)
Reason for Consultation: new af
Medical History
-
History of Present Illness:
66 yo male with PMH of hyperlipidemia, 1st degree AVB, DM, presented abd pain found to have acute cholecystitis now POD #1 for lap myke, found to have new atrial fibrillation
Past Medical History
Past Medical History: Hypercholesterolemia and NIDDM
Social History
Tobacco: Non-Smoker
Alcohol: Occasional
Family History
Family History: CAD
Allergies / Home Medications
Allergy/AdvReac Type Severity Reaction Status Date / Time
No Known Allergies Allergy Verified 04/08/23 22:15
Medication Instructions Recorded Confirmed Type
tizanidine 2 mg capsule 2 mg PO PRN PRN back pain 03/12/18 04/09/23 History
Glucosamine Chondroitin Supplement 04/09/23 History
Probiotic probiotic 04/09/23 History
coenzyme Q10 100 mg capsule (Co 100 mg PO DAILY Supplement 04/09/23 04/09/23 History
Q-10)
cyclobenzaprine 10 mg tablet 10 mg PO HS PRN severe backpain 04/09/23 04/09/23 History
metformin 500 mg tablet 500 mg PO BIDWMEAL Diabetes 04/09/23 04/09/23 History
omeprazole 40 mg capsule,delayed 40 mg PO BID Gastrointestinal Issue 04/09/23 04/09/23 History
release
rosuvastatin 40 mg tablet 40 mg DAILY High Cholesterol 04/09/23 04/09/23 History
turmeric 1,500 mg DAILY Supplement 04/09/23 04/09/23 History
oxycodone 5 mg tablet 5 mg PO Q4HPRN PRN 04/10/23 Rx
breakthrough/severe pain #10 tabs
Physical Exam
Vital Signs
Temp Pulse Resp BP Pulse Ox
98.2 F 82 16 107/55 97
04/11/23 11:40 04/11/23 11:40 04/11/23 11:40 04/11/23 11:40 04/11/23 11:40
Lab Results
04/11/23 06:26
04/11/23 06:26
--- NOTE | 2023-04-11 13:31 | W.PN.HOSP.TC ---
Addendum entered and electronically signed by Tawanda Mooney MD 04/11/23 15:52:
[id number]
Addendum entered and electronically signed by Tawanda Mooney MD 04/11/23 15:36:
Can start on dabigatran Thursday 04/13 morning to allow 72 hours postop, confirmed by surgery and GI
Continue metoprolol 12.5 mg twice daily
Continue low-fat diet
Follow-up GI, surgery, cardiology, PCP outpatientMore than 30 minutes spent in discharge including
Final examination of the patient
Summarizing hospital stay
Instructions for continuing care to all relevant caregivers
Preparation of discharge records, prescriptions, and referral forms
Total time spent (35 in minutes):
Original Note:
Today's Communication/Plan
-
LFD
start lopressor 12.5 mg bid
Cards consulted
CM consulted for eliquis 5mg BID pricing
Assessment / Plan
Assessment / Plan
Physical Exam
General: No Apparent Distress
HEENT: PERRLA
Respiratory: Clear; No Wheezes
Cardiac: S1/S2 and Regular Rhythm
GI: Other (no significant tenderness post dilaudid )
Musculoskeletal: No Edema
Skin: Warm and Dry; No Rash
Neuro: AO x 3
Psych: Calm
Acute Cholecystitis
Non Obstructive Choledocholithiasis
Transaminitis
-POD #2 lap myke
-ERCP POD#1: �Choledocholithiasis was found. Complete removal was accomplished by biliary sphincterotomy and balloon extraction. -A biliary sphincterotomy was performed. The biliary tree was swept.
-Indomethacin rectally post ERCP
-Advance to LFD
-GI consult
-GS consult
-pain control
-anti-nausea med
-zosyn - no further reqs for abx on dc
GERD
-IV PPI
#New onset Afib
-start lopressor 12.5 mg bid
-Cards consulted
-CM consulted for eliquis 5mg BID pricing
NIDDM
-ISS low
DVT PPx SCD; start hsq - anticipate starting eliquis
FULL CODE
Total time spent on today's encounter was 50 minutes which included time spent in counseling the patient/family regarding diagnosis and treatment plan as listed above, goals of care, and symptom management. Case was discussed with nursing staff,
specialists, and care coordinators/case management. All labs and imaging personally reviewed by me. Remainder the time spent in detailed review of previous records, lab data, imaging, and other medical provider documentation.
Anticipated Discharge: Within 24 hours
Subjective/Interval History
-
Date of Service: April 11, 2023
Tolerating diet, went into A-fib overnight
Objective Data
-
Labs:
Laboratory Results
04/11/23
06:26
WBC 9.7
Hgb 11.7 L
Hct 35.8 L
Plt Count 229
Sodium 136
Potassium 3.6
Chloride 103
Carbon Dioxide 26
BUN 13
Creatinine 0.8
Glucose 123 H
Calcium 8.1 L
Total Bilirubin 0.8
AST 38
ALT 122 H
Alkaline Phosphatase 108
Vital Signs:
Vital Signs
Temp Pulse Resp BP Pulse Ox
98.2 F 82 16 107/55 97
04/11/23 11:40 04/11/23 11:40 04/11/23 11:40 04/11/23 11:40 04/11/23 11:40
I&O
04/10/23 04/11/23 04/12/23
06:59 06:59 06:59
Intake Total 1789 / 1789 1809 / 1809
Balance 1789 / 0 1809
Review of Systems
-
History Source: Patient
All other systems: Not reviewed unless documented
Data Reviewed
-
CT Scan: Image personally visualized and interpreted and Report Reviewed by me
Ultrasound: Image personally visualized and interpreted and Report Reviewed by me
MRI: Image personally visualized and interpreted and Report Reviewed by me
Medical Tests (Nuc Med, Echo etc): Image personally visualized and interpreted and Report Reviewed by me
Labs: Labs Reviewed by me
--- NOTE | 2023-04-11 14:17 | W.CHA2DS2VAS ---
[id number] Score
Score
Age in Years (65=0, 65-74=1, >/=75=2): 65-74
Sex (Female=+1): Male
Congestive Heart Failure History (Yes=+1): No
Hypertension History (Yes=+1): No
Stroke/TIA/Thromboembolism History (Yes=+2): No
Vascular Disease History (Yes=+1): No
Diabetes Mellitus (Yes=+1): Yes
Score >/=2 is otherwise an anticoagulation candidate: 2
--- NOTE | 2023-04-11 14:30 | W.PN.GI.CBS2 ---
Addendum entered and electronically signed by Fidelia Escalante MD 04/11/23 14:50:
Confirmed with Dr. Whitten ok to start AC on Thursday AM
Gi signing off
Original Note:
Today's Communication / Plan
-
AC starting on thursday, trial of diet, dc planning
Assessment / Plan
-
67 year old male with DM and hyperlipidemia c/o right upper abdominal pain that began yesterday, with nausea, vomiting. No fever, chills, chest pain or shortness of breath. He has had intermittent episodes of similar pain for the past few years.
Labs show stable hemoglobin and leukocytosis with a WBC count of 12.9, and LFTs ALT 213, AST 70, alk phos 140, bili 0.5. US shows a 1.3cm gallstone and sludge lodged in the neck of a markedly distended gallbladder with gb wall thickening. There is
also extrahepatic biliary ductal dilation with CBD measuring 1.0cm, concerning for acute cholecystitis and acute choledocholithiasis. Pancreatic duct also noted to be dilated, measuring up to 4.5mm.
IMPRESSION / PLAN:
Abdominal Pain, secondary to acute cholecystitis and choledocholithiasis s/p ERCP 04/10 and CCY 04/09.
LFTs improving, pain improving.
Reviewed cardiology note with new onset a fib plan to start Dabigatraban on Thursday would be 72 hours post biliary sphincterotomy will reach out to Dr. Whitten but should be sufficient.
GI will sign off please call with ?s.
Subjective
Subjective
Date of Service: April 11, 2023
no pain/n/v tolerating low fat diet
went into new onset a fib today
Objective
Data Reviewed
Laboratory Data:
Laboratory Results
04/11/23 06:26
04/11/23 06:26
Laboratory Results
Magnesium 2.3 mg/dl (1.6-2.3) 04/11/23 06:26
Total Bilirubin 0.8 mg/dl (0.2-1.3) 04/11/23 06:26
AST 38 U/L (17-59) 04/11/23 06:26
ALT 122 U/L (0-50) H 04/11/23 06:26
Alkaline Phosphatase 108 U/L (38-126) 04/11/23 06:26
Lipase 98 U/L (23-300) 04/08/23 22:33
Vital Signs and I&O:
Vital Signs
Temp Pulse Resp BP Pulse Ox
98.2 F 82 16 107/55 97
04/11/23 11:40 04/11/23 11:40 04/11/23 11:40 04/11/23 11:40 04/11/23 11:40
I&O
04/10/23 04/11/23 04/12/23
06:59 06:59 06:59
Intake Total 1789
Balance 1789
Physical Exam
Physical Exam
GI: Non Distended and Non Tender
--- NOTE | 2023-04-11 15:37 | W.DS.TRANS ---
DC Summary - Network Operations Specialist
-
Discharge Instructions:
Discharge Diagnosis/Procedures acute calculous cholecystitis,
choledocholithiasis; laparoscopic
cholecystectomy, ERCP
Diet Low Fat
Additional Diets Avoid greasy foods and high fat dairy as these
may cause diarrhea in the coming weeks after
your surgery
Activity No strenuous activity
Additional Activity Do not lift more than 15 pounds for 2-3 weeks
Driving Restrictions No driving for 24-48 hours
Bathing Restrictions OK to Shower
Others Tests ECHO outpatient
Wound Care The glue over your incisions will flake off on
its own in 2-3 weeks. Beneath the glue are
sutures which will dissolve on their own.
Instructions:
Stand-Alone Forms:
Changes to Home Medications: Yes
Discharge Medications:
DC Medications w/original date entered in [facility]
tizanidine 2 mg capsule 2 mg PO PRN PRN back pain 03/12/18
Glucosamine Chondroitin Supplement 04/09/23
Probiotic probiotic 04/09/23
coenzyme Q10 100 mg capsule (Co Q-10) 100 mg PO DAILY Supplement 04/09/23
cyclobenzaprine 10 mg tablet 10 mg PO HS PRN severe backpain 04/09/23
metformin 500 mg tablet 500 mg PO BIDWMEAL Diabetes 04/09/23
omeprazole 40 mg capsule,delayed release 40 mg PO BID Gastrointestinal Issue 04/09/23
rosuvastatin 40 mg tablet 40 mg DAILY High Cholesterol 04/09/23
turmeric 1,500 mg DAILY Supplement 04/09/23
oxycodone 5 mg tablet 5 mg PO Q4HPRN PRN breakthrough/severe pain #10 tabs 04/10/23
acetaminophen 325 mg tablet 650 mg PO Q4HPRN PRN mild pain/IGLESIAS/temp> 100.4F #60 tabs 04/11/23
dabigatran etexilate 150 mg capsule 150 mg PO BID 30 days #60 caps 04/11/23
metoprolol tartrate 25 mg tablet 12.5 mg PO BID 30 days #30 tabs 04/11/23
Home Medication Changes
oxycodone 5 mg tablet 5 mg PO Q4HPRN PRN breakthrough/severe pain #10 tabs 04/10/23
acetaminophen 325 mg tablet 650 mg PO Q4HPRN PRN mild pain/IGLESIAS/temp> 100.4F #60 tabs 04/11/23
dabigatran etexilate 150 mg capsule 150 mg PO BID 30 days #60 caps 04/11/23
metoprolol tartrate 25 mg tablet 12.5 mg PO BID 30 days #30 tabs 04/11/23
Pending Results: No
--- NOTE | 2023-04-11 16:05 | CM ---
CM following re: discharge planning.
Discharge order noted. Pt is aware, expressed his agreement with discharge. IMM reviewed, placed in chart, pt has copy.
Pt is aware that Eliquis and Xarelto do not cover by insurance. Pt received Good RX coupon for Dabigatran at [facility] pharmacy and he stated he will fill it today.
Pt is independent with functional ability. No after care VN services identified.
D/C plan: home no needs. Spouse to transport.
--- NOTE | 2023-04-11 16:15 | PTCARENOTE ---
Patient ready for discharge. Removed IV. Went over discharge with patient and patient's family member.
Patient ambulated out with patient's family.
== END 2023-04-11 16:15 | disposition home or self-care (01) | DRG 418 ==
LOC: 2 SOUTH 03:13
PROVIDERS: Emergency Medicine; Internal Medicine Gastroenterology; ADMITTING PHYSICIAN Student in an Organized Health Care Education/Training Program; ATTENDING PHYSICIAN Internal Medicine; CONSULT PHYSICIAN Internal Medicine Cardiovascular Disease; CONSULT PHYSICIAN Surgery; EMERGENCY PHYSICIAN Emergency Medicine; FAMILY PHYSICIAN Family Medicine
PROC: 0FT44ZZ Resection of Gallbladder, Percutaneous Endoscopic Approach (ICD-10-PCS; 2023-04-09)
PROC: BF101ZZ Fluoroscopy of Bile Ducts using Low Osmolar Contrast (ICD-10-PCS; 2023-04-10)
PROC: 0FC98ZZ Extirpation of Matter from Common Bile Duct, Via Natural or Artificial Opening Endoscopic (ICD-10-PCS; 2023-04-10)
DX: K80.63 Calculus of gallbladder and bile duct with acute cholecystitis with obstruction (principal); E87.1 Hypo-osmolality and hyponatremia; E11.9 Type 2 diabetes mellitus without complications; E78.00 Pure hypercholesterolemia, unspecified; G47.30 Sleep apnea, unspecified; M19.90 Unspecified osteoarthritis, unspecified site; M54.9 Dorsalgia, unspecified; I10 Essential (primary) hypertension; E86.0 Dehydration; I44.0 Atrioventricular block, first degree; K66.0 Peritoneal adhesions (postprocedural) (postinfection); I48.91 Unspecified atrial fibrillation; K21.9 Gastro-esophageal reflux disease without esophagitis; K76.0 Fatty (change of) liver, not elsewhere classified; Z79.84 Long term (current) use of oral hypoglycemic drugs; Z87.19 Personal history of other diseases of the digestive system; Z86.010 Personal history of colon polyps
CPT/HCPCS: 88304; 74181; 74330; 76000; 76700; 80053; 82962; 83036; 83690; 83735; 85025; 85027; 93005; 96361; 96365; 96375; 96376; 99285; C1769

== ENCOUNTER → 2023-04-27 10:03 | Outpatient (REF) | payer MEDICARE, OTHER, SELFPAY | LOC: DHCBC HW 10:03 | PROVIDERS: ATTENDING PHYSICIAN Internal Medicine; FAMILY PHYSICIAN Family Medicine | DX: I48.91 Unspecified atrial fibrillation (principal) | CPT/HCPCS: 93306 ==